=== PATIENT | male | born 1950 | race Caucasian/White ===

== ENCOUNTER 2019-05-15 19:44 | Emergency (ER) | payer OTHER ==
[~2019-05-15] VITALS: Ht 177.8 cm; Wt 81.6 kg
[2019-05-15 21:17] LABS: Urine Bacteria NONE SEEN /hpf (None Seen); Urine Blood Negative /uL (Negative); Urine Specific Gravity 1.013 (1.001-1.035); Urine WBC <1 /hpf (0 - 3)
[2019-05-15 21:23] LABS: Alcohol, Urine < 3.0 mg/dL (0-5); Amphetamine Screen, Urine NEGATIVE (NEGATIVE); Barbiturate Scree,Urine NEGATIVE (NEGATIVE); Benzodiazephine Screen, Urine POSITIVE (NEGATIVE); Cannabinoid Screen, Urine NEGATIVE (NEGATIVE); Cocaine Screen, Urine NEGATIVE (NEGATIVE); Opiate Scree,Urine NEGATIVE (NEGATIVE); Phencyclidine Screen, Urine NEGATIVE (NEGATIVE)
[2019-05-15 22:08] LABS: Basophils # (auto) 0 10 ^3/uL (0-0.2); Basophils % (auto) 0.2 % (0.0-2.0); Eosinophils # (auto) 0.1 10 ^3/uL (0-0.8); Eosinophils % (auto) 1.2 % (0.0-7.0); Hematocrit 40.2 % (41.0-53.0); Hemoglobin 13.1 g/dL (13.5-17.5); Lymphocytes # (auto) 1.3 10 ^3/uL (0.4-5.4); Lymphocytes % (auto) 14.4 % (10.0-50.0); Mean Corpuscular Hemoglobin 28.5 pg (28.0-32.0); Mean Corpuscular Hgb Conc. 32.7 g/dL (32.0-36.0); Mean Corpuscular Volume 87.2 fL (80.0-100.0); Monocytes # (auto) 0.6 10 ^3/uL (0-1.3); Monocytes % (auto) 7.1 % (0.0-12.0); Neutrophils # (auto) 6.8 10 ^3/uL (1.6-8.6); Neutrophils % (auto) 77.1 % (37.0-80.0); Platelet Count (auto) 205 10^3/uL (140-450); Red Blood Cells 4.62 10^6/uL (4.5-5.90); Red Cell Distribution Width 15.3 % (11.8-14.3); White Blood Cell 8.9 10^3/uL (4.4-10.8)
[2019-05-15 22:24] LABS: Anion Gap 5 (5-15); Blood Alcohol < 3.0 mg/dL (0-5); Blood Urea Nitrogen 36 mg/dL (7-18); Calcium 9.2 mg/dL (8.5-10.1); Carbon Dioxide 25 mmol/L (21-32); Chloride 111 mmol/L (98-107); Glucose 133 mg/dL (74-106); Potassium 4.8 mmol/L (3.5-5.1); Sodium 141 mmol/L (136-145)
[2019-05-15 22:33] LABS: Alanine Aminotransferase 27 U/L (16-61); Alkaline Phosphatase 117 U/L (45-117); Aspartate Aminotransferase 17 U/L (15-37); BUN/Creatinine Ratio 27.9; Bilirubin, Total 0.3 mg/dL (0.2-1.0); GFR African American 72 mL/min; GFR Non-African American 59 mL/min; Total Protein 7.5 g/dL (6.4-8.2)
[2019-05-16 12:46] VITALS: BP 157/66
== END 2019-05-16 12:46 | disposition short-term general hospital (02) ==
LOC: EDBD 19:44 → EDUNIT# 19:48 → ER 19:48
DX: R41.82 Altered mental status, unspecified (principal); G40.909 Epilepsy, unspecified, not intractable, without status epilepticus; Z95.0 Presence of cardiac pacemaker
CPT/HCPCS: 36415; 70450; 80053; 80307; 80320; 81001; 83735; 85025; 93005

== ENCOUNTER 2023-09-19 00:22 | Emergency (ER) | payer OTHER ==
[~2023-09-19] VITALS: Ht 172.7 cm; Wt 91.0 kg
[2023-09-19 00:22] VITALS: BP 168/94; RESP 16; O2SAT 96
[2023-09-19] MEDS: HYDROcodone-ACET 5/325MG TAB PO ONE (03:46)
[2023-09-19] MEDS: ONDANSETRON ODT 4 MG TAB PO ONE (03:47)
[2023-09-19] MEDS ORDERED: ACET500T58 PO (05:04)
[2023-09-19 05:37] VITALS: PULSE 69
== END 2023-09-19 05:12 | disposition home or self-care (01) ==
LOC: EDBD 00:22 → ER 00:22
DX: S46.912A Strain of unspecified muscle, fascia and tendon at shoulder and upper arm level, left arm, initial encounter (principal); S39.012A Strain of muscle, fascia and tendon of lower back, initial encounter; S09.90XA Unspecified injury of head, initial encounter; F32.9 Major depressive disorder, single episode, unspecified; F25.9 Schizoaffective disorder, unspecified; Z79.899 Other long term (current) drug therapy; W06.XXXA Fall from bed, initial encounter; Y93.89 Activity, other specified; Y92.89 Other specified places as the place of occurrence of the external cause; Y99.8 Other external cause status
CPT/HCPCS: 70450; 72100; 73030; 93005; 99284; Q0162

== ENCOUNTER 2023-09-26 05:20 | Inpatient (IN) | payer OTHER ==
[2023-09-26] VITALS (9 sets, daily range): BP systolic 131–152; BP diastolic 79–90; PULSE 60–75; RESP 18–20; TEMP 36.4; O2SAT 96–98
[~2023-09-26] VITALS: Ht 177.8 cm; Wt 99.0 kg
[~2023-09-26 05:20] MED LIST: ACET500T58 PO
[2023-09-26] MEDS ORDERED: ONDANSETRON HCL 4 MG/2 ML VIAL IV PRN (07:15)
[2023-09-26] MEDS ORDERED: ACETAMINOPHEN 325 MG TAB PO PRN (07:15)
[2023-09-26] MEDS ORDERED: TEMAZEPAM 15 MG CAP PO PRN (07:15)
[2023-09-26 08:55] LABS: Basophils # (auto) 0 10 ^3/uL (0-0.2); Basophils % (auto) 0.6 % (0.0-2.0); Eosinophils # (auto) 0.2 10 ^3/uL (0-0.8); Eosinophils % (auto) 2.1 % (0.0-7.0); Hematocrit 49.1 % (41.0-53.0); Hemoglobin 16.2 g/dL (13.5-17.5); Lymphocytes # (auto) 1.5 10 ^3/uL (0.4-5.4); Lymphocytes % (auto) 20.1 % (10.0-50.0); Mean Corpuscular Hemoglobin 29.8 pg (28.0-32.0); Mean Corpuscular Hgb Conc. 33.1 g/dL (32.0-36.0); Mean Corpuscular Volume 90.1 fL (80.0-100.0); Monocytes # (auto) 0.8 10 ^3/uL (0-1.3); Monocytes % (auto) 9.8 % (0.0-12.0); Neutrophils # (auto) 5.2 10 ^3/uL (1.6-8.6); Neutrophils % (auto) 67.4 % (37.0-80.0); Nucleated Red Blood Cells % 0.1 %; Red Blood Cells 5.45 10^6/uL (4.5-5.90); Red Cell Distribution Width 14.5 % (11.8-14.3); White Blood Cell 7.7 10^3/uL (4.4-10.8)
[2023-09-26 09:16] LABS: Alanine Aminotransferase 22 U/L (7-40); Albumin 4.6 g/dL (3.2-4.8); Alkaline Phosphatase 96 U/L (46-116); Anion Gap 6 (5-15); Aspartate Aminotransferase 14 U/L (13-40); BUN/Creatinine Ratio 30.6 (10.0-20.0); Blood Urea Nitrogen 33 mg/dL (9-23); Calcium 10.3 mg/dL (8.7-10.4); Carbon Dioxide 28 mmol/L (20-30); Chloride 106 mmol/L (98-107); Glucose 124 mg/dL (74-106); Potassium 5.3 mmol/L (3.5-5.1); Sodium 140 mmol/L (136-145)
[2023-09-26 09:17] LABS: Bilirubin, Total 0.4 mg/dL (0.2-1.0); Total Protein 6.8 g/dL (5.7-8.2)
[2023-09-26 09:25] LABS: INR 1.03 (0.9-1.15); Partial Thromboplastin Time 27.6 SEC (24.5-34.5); Prothrombin Time 10.9 sec (9.3-11.8)
[2023-09-26] MEDS: PANTOPRAZOLE 40 MG TAB PO ONE (10:28)
[2023-09-26] MEDS: ASPirin 81 mg TAB PO SCH (10:28)
[2023-09-26] MEDS: ENOXAPARIN SOD 40 MG/0.4 ML SYRINGE SC SCH (10:29)
[2023-09-26] MEDS ORDERED: PANT40T PO (13:53)
[2023-09-26] MEDS ORDERED: ASPI-325 PO (13:53)
[2023-09-26] MEDS ORDERED: ACET-1882 PO (13:53)
[2023-09-26] MEDS ORDERED: ATOR20TA50 PO (13:53)
[2023-09-26] MEDS ORDERED: DIVA1TAB58 PO (13:53)
[2023-09-26] MEDS: HYDROcodone-ACET 5/325MG TAB PO PRN (14:26)
[2023-09-26] MEDS ORDERED: InsuLIN REG 1unit/0.01ml Soln (100units/ml) IV ONE (16:30)
[2023-09-26] MEDS ORDERED: ALBUTEROL SULF 2.5 MG/0.5ML(0.5%) NEB SOLN NEB ONE ×2 (16:30→16:45)
[2023-09-26] MEDS: InsuLIN REG 1unit/0.01ml Soln (100units/ml) IV ONE (16:30)
[2023-09-26 17:31] LABS: Calcium 10.1 mg/dL (8.7-10.4)
[2023-09-26 17:38] LABS: Phosphorus 3.3 mg/dL (2.4-5.1)
[2023-09-26] MEDS: SODIUM ZIRCONIUM CYCL 10 GM PAK PO ONE (17:55)
[2023-09-26] MEDS: DEXTROSE (50%) 50ML SYRG IV ONE (17:56)
[2023-09-26] MEDS ORDERED: ATORVASTATIN 20 MG TAB PO SCH (22:00)
[2023-09-26] MEDS: ATORVASTATIN 20 MG TAB PO SCH (22:27)
[2023-09-27] MEDS ORDERED: LORazepam 2MG/ML-1ML VIAL IV PRN (00:30)
[2023-09-27 01:00] VITALS: BP 108/65; PULSE 74; RESP 18; TEMP 97.4; O2SAT 96
[2023-09-27 05:00] VITALS: BP 120/60; PULSE 66; RESP 18; TEMP 97.2; O2SAT 96
[2023-09-27] MEDS: PANTOPRAZOLE 40 MG TAB PO SCH (05:37)
[2023-09-27] MEDS ORDERED: SODIUM ZIRCONIUM CYCL 10 GM PAK PO ONE (07:15)
[2023-09-27 08:00] VITALS: PULSE 69; RESP 16; O2SAT 97
[2023-09-27 09:00] VITALS: BP 125/89; PULSE 69; RESP 16; TEMP 98.2; O2SAT 97
[2023-09-27] MEDS: SODIUM ZIRCONIUM CYCL 10 GM PAK PO ONE (10:04)
[2023-09-27 10:16] LABS: Urine Bacteria None Seen /hpf (None Seen)
[2023-09-27 10:31] LABS: Urine Blood Negative /uL (Negative); Urine Clarity Clear (Clear); Urine Color Light-Yellow (Yellow); Urine Protein, UAD Negative (Negative); Urine Specific Gravity 1.012 (1.001-1.035); Urine Urobilinogen Normal (Negative); Urine WBC 7 /hpf (0 - 3); Urine pH 5.5 (5.0-9.0)
[2023-09-27 10:47] LABS: Amphetamine Screen, Urine Neg (NEGATIVE); Barbiturate Scree,Urine Neg (NEGATIVE); Benzodiazephine Screen, Urine Neg (NEGATIVE); Cannabinoid Screen, Urine Neg (NEGATIVE); Cocaine Screen, Urine Neg (NEGATIVE); Opiate Scree,Urine Neg (NEGATIVE); Phencyclidine Screen, Urine Neg (NEGATIVE)
[2023-09-27 12:23] LABS: Sodium Urine 51 mmol/L (40-220)
[2023-09-27] MEDS ORDERED: MEROPENEM 1GM IVPB 50 ML IV ONE (12:45)
[2023-09-27 13:00] VITALS: BP 143/74; PULSE 80; RESP 16; TEMP 98.4; O2SAT 97
[2023-09-27] MEDS: QUEtiapine FUMARATE 25 MG TAB PO ONE (14:00)
[2023-09-27 17:00] VITALS: BP 123/73; PULSE 69; RESP 16; TEMP 98.3; O2SAT 98
[2023-09-27] MEDS ORDERED: SODI10PA PO (17:27)
[2023-09-27] MEDS ORDERED: QUEtiapine FUMARATE 25 MG TAB PO SCH (22:00)
== END 2023-09-27 17:00 | disposition home health service (06) | DRG 92 ==
LOC: WEST WING 05:20
PROVIDERS: ADMIT Internal Medicine; ATTEND Internal Medicine
DX: R47.81 Slurred speech (principal); I69.351 Hemiplegia and hemiparesis following cerebral infarction affecting right dominant side; R53.1 Weakness; R29.2 Abnormal reflex; F25.9 Schizoaffective disorder, unspecified; E87.5 Hyperkalemia; K21.9 Gastro-esophageal reflux disease without esophagitis; F32.A Depression, unspecified; F17.290 Nicotine dependence, other tobacco product, uncomplicated; T42.6X5A Adverse effect of other antiepileptic and sedative-hypnotic drugs, initial encounter; Z95.0 Presence of cardiac pacemaker; Y92.89 Other specified places as the place of occurrence of the external cause
CPT/HCPCS: 36415; 80053; 80307; 81001; 82306; 82310; 82550; 82607; 83036; 84100; 84132; 84133; 84300; 84443; 84484; 85025; 85610; 85730; 93005; 97163; G0378; J1815; J2185